=== PATIENT | female | born 1940 | race African-American/Black ===

== ENCOUNTER 2022-06-05 12:37 | Emergency (ER) | payer MEDICARE, MEDICAID ==
[~2022-06-05] VITALS: Ht 157.5 cm; Wt 55.0 kg
[2022-06-05] MEDS ORDERED: SODIUM CHLORIDE 0.9% 1,000 ML IV ONE (14:00)
[2022-06-05 14:26] LABS: BASOPHILS % 0.6 % (0.0-2.0); EOSINOPHILS % 0.1 % (0.0-5.0); HEMATOCRIT. 45.4 % (36.0-48.0); HEMOGLOBIN. 14.9 g/dL (12.0-16.0); LYMPHOCYTES % 27.5 % (20.0-50.0); MEAN CORPUSCULAR HEMOGLOBIN 28.6 pg (28.0-32.0); MEAN CORPUSCULAR VOLUME 86.9 fL (81.0-99.0); MEAN PLATELET VOLUME 8.3 fl (7.4-10.4); MONOCYTES % 7.4 % (2.0-8.0); NEUTROPHILS % 64.4 % (40.0-76.0); PLATELET 263 x1000/uL (130-400); RED BLOOD CELL COUNT 5.22 mill/uL (4.2-5.4); RED CELL DISTRIBUTION WIDTH 15.3 % (11.6-14.6)
[2022-06-05 14:36] LABS: CHLORIDE 105 mEq/L (98-107)
[2022-06-05 14:48] LABS: ETHANOL BLOOD < 10 mg/dL
[2022-06-05 16:09] LABS: CLARITY URINE CLEAR (CLEAR); COLOR URINE YELLOW (YELLOW); KETONES URINE TRACE (NEGATIVE); LEUKOCYTE ESTERASE URINE 2+ (NEGATIVE); NITRITE URINE NEGATIVE (NEGATIVE); OCCULT BLOOD URINE NEGATIVE (NEGATIVE); PROTEIN URINE NEGATIVE (NEGATIVE); SPECIFIC GRAVITY URINE 1.008 (1.005-1.030); UROBILINOGEN URINE 0.2 E.U./dL (0.2-1.0)
[2022-06-05 16:28] LABS: *AMPHETAMINES SCREEN URINE NEGATIVE (NEGATIVE); *BARBITURATES SCREEN URINE NEGATIVE (NEGATIVE); *BENZODIAZEPINES SCREEN URINE NEGATIVE (NEGATIVE); *COCAINE SCREEN URINE NEGATIVE (NEGATIVE); CANNABINOID URINE SCREEN NEGATIVE (NEGATIVE); METHADONE URINE SCREEN NEGATIVE (NEGATIVE); OPIATES URINE SCREEN NEGATIVE (NEGATIVE); PHENCYCLIDINE URINE SCREEN NEGATIVE (NEGATIVE)
[2022-06-05] MEDS ORDERED: GABA-532 MT (16:29)
[2022-06-05] MEDS ORDERED: SULF1TAB48 MT (16:29)
[2022-06-05] MEDS ORDERED: BENA10TA74 MT (16:29)
[2022-06-05] MEDS ORDERED: APIX5TAB MT (16:29)
[2022-06-05] MEDS ORDERED: ATOR20TA65 MT (16:34)
[2022-06-05] MEDS ORDERED: BENA-8 MT (16:34)
[2022-06-05] MEDS ORDERED: RIVA10TA PO (16:34)
[2022-06-05 17:00] VITALS: BP 159/69
== END 2022-06-05 17:12 | disposition home or self-care (01) ==
LOC: ER 12:37
DX: N39.0 Urinary tract infection, site not specified (principal); I10 Essential (primary) hypertension; R51.9 Headache, unspecified; Z76.0 Encounter for issue of repeat prescription; Z86.73 Personal history of transient ischemic attack (TIA), and cerebral infarction without residual deficits
CPT/HCPCS: 36415; 70450; 80053; 80305; 80320; 81003; 82962; 83880; 84484; 85025; 99285; J7030; G0480